=== PATIENT | female | born 1960 | race Caucasian/White ===

== ENCOUNTER → 2017-01-03 | Day surgery (SDC) | payer OTHER ==
[~2017-01-03] VITALS: Ht 165.1 cm; Wt 104.0 kg
[~2017-01-03] MED LIST: CHOL500011 PO; CYAN1TAB42 PO; Dexamethasone 4 mg/mL Inj IVPUSH PRN; Dexamethasone 4 mg/mL Inj ONE; EPHEDrine Sulfate 50 mg/mL Inj IVPUSH PRN; ESCI10TA3 PO; HYDR12.5 PO; HYDROcodone-APAP 5-325 mg Tablet PO PRN; HYDROmorphone 1 mg/mL Inj IVPUSH PRN; Lactated Ringer's 1,000 ML IV ONE; Lactated Ringer's 1,000 ML IV SCH; Lactated Ringer's 500 ML IV PRN; MetoCLOpramide 5 mg/mL 2 mL Inj IVPUSH PRN; Ondansetron 2 mg/mL 2 mL Inj IVPUSH PRN; Ondansetron 2 mg/mL 2 mL Inj ONE; POTA5TAB2 PO; Phenylephrine 10,000 mCg/mL Inj IVPUSH PRN; Propofol 10,000 mCg/mL 20 mL Inj ONE; ZLP5T PO; fentaNYL-PF 50 mCg/mL 2 mL Inj IVPUSH PRN; fentaNYL-PF 50 mCg/mL 2 mL Inj ONE
[2017-01-03 06:52] VITALS: BP 145/79; PULSE 71; RESP 17; O2SAT 96
--- NOTE | 2017-01-03 07:48 | PCM.HPANE ---
Patient Data Surgeon Admitting Provider: Attending Provider:Sean Rossi MD Primary Care Physician:Tootie Myles PA-C Other Provider:Jian Mc Anesthesia Reason for Visit Right Kidney Stone Ht/WT & BMI Height (Feet): 5 Height (Inches): 5.00 Weight (Kilograms): 104 Body Mass Index 38.00 Allergies Coded Allergies: Sulfa (Sulfonamide Antibiotics) (Verified Allergy, Intermediate, Rash to oral rx, 12/26/16) Opthalmic sulfa causes severe burning and blood shot eyes Past Anesthesia History Anesthesia History: Denies:: Abnormal Airway, Anesthesia Reactions, Difficult Intubation, Fam Anesthesia Reaction Diabetes History Hx Diabetes?: No MRSA MRSA: No Medications Hypertension Medication: Yes Home Meds Incl Beta Jazz: No Reported Medications Zolpidem (Ambien)5 Mg Tablet5 Mg PO HS PRN For Insomnia Ref 0 12/27/16 Escitalopram Oxalate (Lexapro)10 Mg [id number] Mg PO DAILY 30 Days Ref 0 12/27/16 Cholecalciferol (Vitamin D3) (Vitamin D3)5,000 Unit Tablet5,000 Unit PO DAILY 12/27/16 Cyanocobalamin/Folic Acid (Vitamin Q25-Njbqh Acid Tablet)1 Each Tablet1 Each PO DAILY 12/27/16 Potassium Citrate ER 5 Meq Tablet5 Meq PO Q2DAY Ref 0 TAKE WITH FOOD 12/27/16 Hydrochlorothiazide 12.5 Mg Azysmye05.5-25 Mg PO DAILY 30 Days Ref 0 12/27/16 Discontinued Reported Medications [acetamenophen] No Conflict [id number] Mg PRN Ref 0 11/24/08 History History of ENT Problems?: No HEENT History: Denies:: Abnormal Airway Cataracts (hx lasik bilaterally) Difficult Intubation Dysphagia Glaucoma Hearing Problem Sinus Problem TMJ Denture Type: None Teeth Condition: Within Normal Limits Hx of Heart Problems?: No Cardiovascular History: Positive for:: Hypertension Denies:: AICD Abdominal Aortic Aneurism Atrial Fibrillation Chest Pain Edema Heart Murmur Irregular Heartbeat Pacemaker Peripheral Vascular Rheumatic Fever Hx of Respiratory Problem?: No Respiratory History: Denies:: Asthma COPD Emphysema Oxygen Administration Pneumonia Tuberculosis Use of C-PAP Machine Use of Inhalers / NEBS Hx Neurologic Problems?: No Neurological History: Positive for:: Headaches (FREQ.) Denies:: CVA Multiple Sclerosis Parkinson's Disease Seizures Hx of GI Problems?: Yes Hx of Problems?: Yes Genitourinary History: Positive for:: Kidney Stones (hx of bilateral- right side scheduled, prior lithotripsy ) Denies:: Urinary Tract Infection Female Hx: Denies:: Currently (hysterectomy) Problems with Breasts? Skin History: Denies:: History Skin Disorders? Pressure Ulcers Hx Musculoskeletal Problems?: No Musculoskeletal History: Denies:: Degenerative Joint Fibromyalgia Joint Replacement Musculoskeletal Trauma Myasthenia Gravis Osteoarthritis Systemic Lupus Hx of Psycho/Social Problems?: Yes Psycho Social History: Positive for:: Hx Depression Denies:: Anxiety Hx Surgeries?: Yes (HYSTEROSCOPY/ABLATION,RT ESWL,LTS) Hx Any Other Health Problems?: Yes Other History: Positive for:: Cancer (SOFIE- (hysterectomy)) Denies:: Endocrine Disease Hospitalization Thyroid Disease History Blood Transfusions: Positive for:: Accept Blood Products? Denies:: Blood Transfusions Hx Diabetes: No Hx Alcohol Use: NoHx Substance Use: NoHave You Smoked inLast 12 mo: No Stop/Bang S-Snoring: Do You Snore Loudly: Yes T-Tired: feel tired, fatigued: Yes O-Obsered: Observed not breath: No P-Blood Pressure: treated: Yes B- Body Mass Index > 35 kg/m2: Yes A- Age over 50: Yes N- Neck Large Circumference: No G- Gender Male: No MATTHEW Total Score: 5 MATTHEW Risk Assessment: High Risk, =/>3 Yes MATTHEW Category 4 OutPt Procedure: Yes Risk Assessment Category Category 1A: Patient has history of documented sleep apnea, and HAS NOT received any narcotic, sedative or anesthesia administration during this stay. Category 1B: Patient has history of documented sleep apnea, and HAS received any narcotic , sedative or anesthesia administration during this stay Category 2: Patient has SUSPECTED Obstructive Sleep Apnea, and HAS received any narcotic , sedative or anesthesia administration during this stay. Category 3: Patient has SUSPECTED Obstructive Sleep Apnea and HAS NOT received narcotic, sedative or anesthesia administration during this stay. Category 4: Outpatient in Procedural Areas with known sleep apnea or who screen positive for High Risk via the STOP/BANG questionnaire. Exam Exam Vital Signs Vital Signs Date Time Temp Pulse Resp B/P Pulse Ox O2 Delivery O2 Flow Rate FiO2 01/03/17 06:52 36 71 17 145/79 96 Room Air General Appearance: Alert, Oriented X3, Cooperative, No Acute Distress HEENT/AIRWAY: MP 1 Lungs: Normal Air Movement Heart: Exam Unremarkable Meds/Labs/Diagnostics Admission Meds Current Medications Lactated Ringer's (Lr) 1,000 ml @ ud STK-MED ONCE IV Last administered on 01/03t 06:42; Start 01/03/17 at 06:42; Stop 01/03/17 at 06:43; Status DC Plan Impression Patient chart reviewed, patient interviewed and anesthestic plan with risks, benefits, and alternatives discussed, and informed consent obtained. ASA Physical Status: ASA2 Mod Systemic Disease Anesthetic Plan: GA Bene/Risks/Altern/Consents: Yes HP Complete Prior to Induction: Yes Aram Palumbo MD Jan 03, 2017 07:48
[2017-01-03 09:12] VITALS: BP 123/73; PULSE 68; RESP 10; O2SAT 89
[2017-01-03 09:15] VITALS: BP 117/76; PULSE 68; RESP 11; O2SAT 90
[2017-01-03 09:24] VITALS: BP 106/70; PULSE 69; RESP 12; O2SAT 91
--- NOTE | 2017-01-03 09:31 | PCM.SURGPO ---
Immediate Operative Note Date of Surgery: Jan 03, 2017 Pre Operative Diagnosis R renal calculi Post Operative Diagnosis R renal calculi Procedure Extracorporeal shock wave lithotripsy of R renal calculi Surgeon and Marine Mechanic Surgeon: Sean Rossi MD Assistants: None Findings Pre-op KUB showed R mid pole renal calculi x 2 (4mm x 3mm, 3mm x 2mm). ESWL of R renal calculi was performed at a rate of 60, up to a maximum energy level of 6 , with a total of 1500 shocks administered. Of note, a 2 minute pause was performed after the initial 200 shocks to aid in calculus fragmentation. Post- ESWL fluoroscopy revealed evidence for excellent fragmentation of calculi. Complications There were no periprocedural complications identified. Surgical Specimen Removed: No Specimen sent to Pathology: No Anesthetic Administered: GA Grafts, Implants: None Output, Estimated Blood Loss: 0 Blood Admin during surgery: No Additional information Patient to return to see me in 2-3 weeks, with KUB prior to appt. Sean Rossi MD Jan 03, 2017 09:31
--- NOTE | 2017-01-03 09:32 | PCM.ANEP1 ---
Post Anesthesia PACU Phase 1 Assessment Vital Signs Vital Signs Date Time Temp Pulse Resp B/P Pulse Ox O2 Delivery O2 Flow Rate FiO2 01/03/17 09:24 69 12 106/70 91 Nasal Cannula 2 01/03/17 09:15 68 11 117/76 90 Nasal Cannula 2 01/03/17 09:12 36.1 68 10 123/73 89 Room Air 01/03/17 06:52 36 71 17 145/79 96 Room Air Anesthetic Administered: GA Level of Alertness: Sleepy, easy to arouse DODGE's with Equal Strength: Yes Pain: No Nausea or Vomiting: No CV Function & Hydration Stable: Yes Airway Device: Oxygen Delivery: Nasal Cannula Lungs: Normal Air Movement PACU Phase 2 Assessment Complications: No Follow up Care: No Patient Instructions Provided: N/A Aram Palumbo MD Jan 03, 2017 09:32
[2017-01-03 09:39] VITALS: BP 128/77; PULSE 74; O2SAT 98
--- NOTE | 2017-01-03 10:02 | PCM.DISURG ---
Surgical Discharge Instruction Date of Service Jan 03, 2017 Dates of Hospitalization Date of Hospital Admission Jan 03, 2017 Providers Admitting Physician: Sean Rossi MD Primary Care Physician: Tootie Myles PA-C Attending Physician: Sean Rossi MD Discharge Diagnosis Discharge Diagnosis R renal calculi Post Operative diagnosis R renal calculi Diet Discharge Diet: No restrictions, Other (Drink at least 10-12 8oz. glasses (3 liters) of fluids per day) Activity Discharge Activity-General: No driving while taking narcotic Dressing and Incisional Care Hygiene: May shower Follow Up Plan Follow-up Provider (F9): Sean Rossi MD Follow-up appointment: Weeks (2-3 weeks, with KUB prior to appt.) Call your provider for: Fever, Chills, Vomiting, Other (Pain uncontrolled by pain medications) Sean Rossi MD Jan 03, 2017 10:02
[2017-01-03 10:29] VITALS: BP 125/75; PULSE 71; RESP 12; O2SAT 100
--- NOTE | 2017-01-03 14:14 | DRSVH ---
PROCEDURE: X-RAY KUB ([id number]) INDICATIONS: RIGHT KIDNEY STONE TECHNIQUE: One view of the abdomen acquired. COMPARISON: [facility], CR, XR ABD AP 1VW, 06/01/2016, 8:44. [facility], C R, XR KUB, 12/28/2016, 10:02. FINDINGS: Surgical changes and devices: Right lower quadrant surgical clips. Bowel: Bowel gas pattern is normal. Soft tissues: 2 roughly 2-3 mm calcifications projected over the mid to lower pole of the right kidne y. Multiple pelvic calcifications redemonstrated. Bones: No suspicious bony lesions. IMPRESSION: 2 small stones could be projected over the lower pole of the right kidney. Several pelvic calcifications present likely related to phleboliths but distal ureteral stones cannot entirely be excluded. Recommend clinical correlation and if indicated CT KUB could be performed. Dictated by: Johnny YU Interpreted: Shirley Beck MD on 01/03/2017 at 9:38 Approved by: Shirley Beck M.D. on 01/03/2017 at 14:12
--- NOTE | 2017-01-04 17:58 | OP ---
[address] [address] OPERATIVE REPORT PATIENT: GRACE BRAUN : 1960 MR#: [id number] ADMIT: 01/03/2017 JOB ID: [id number] DATE OF SURGERY: 01/03/2017 PREOPERATIVE DIAGNOSIS(ES): Right renal calculi. POSTOPERATIVE DIAGNOSIS(ES): Right renal calculi. PROCEDURE: Extracorporeal shockwave lithotripsy of right renal calculi. SURGEON: Sean Rossi MD UTILITY WORKER FORGE: None. ANESTHESIA: General. ESTIMATED BLOOD LOSS: 0 mL. SPECIMENS: None. DRAINS: None. COMPLICATIONS: None. CONDITION: Stable. FINDINGS: Preop KUB showed right mid pole renal calculi x2 (4 mm x3 mm, 3 mm x 2 mm). ESWL of right renal calculi was performed at a rate of 60 up to a maximum energy level of 6, with a total of 1500 shocks administered. Of note, a 2 minute pause was performed after the initial 200 shocks to aid in calculus fragmentation. Post ESWL fluoroscopy revealed evidence for excellent fragmentation of calculi. INDICATIONS: The patient is a 56-year-old female with right renal calculi seen on KUB. The patient now presents for extracorporeal shockwave lithotripsy of right renal calculi. DESCRIPTION OF PROCEDURE: The patient was brought to the operating room and placed supine on the operating table. Sequential compression device boots were placed. General anesthesia was administered. The patient was left in supine position. Preop KUB showed right mid pole renal calculi x2 (4 mm x 3 mm, 3 mm x 2 mm). Extracorporeal shockwave lithotripsy of right renal calculi was performed at a rate of 60 up to a maximum energy level of 6, with a total of 1500 shocks administered. Of note, a 2 minute pause was performed after the initial 200 shocks to aid in calculus fragmentation. Post ESWL fluoroscopy revealed evidence for excellent fragmentation of calculi. The patient was awakened from general anesthesia and transferred to the recovery room in stable condition. The patient tolerated the procedure well. POSTOPERATIVE PLAN: For the patient to return to see me in the office in 2-3 weeks with a KUB prior to the appointment.
== END | disposition home or self-care (01) ==
LOC: SAS 06:19
PROVIDERS: ATTEND Urology
DX: N20.0 Calculus of kidney (principal); I10 Essential (primary) hypertension
CPT/HCPCS: 50590; 74000; J1100; J1885; J2250; J2405; J2704; J3010; J7120